=== PATIENT | male | born 1955 | race Caucasian/White ===

== ENCOUNTER → 2018-09-18 07:35 | Outpatient (CLI) | payer OTHER, SELFPAY ==
[2018-09-18 08:45] LABS: Specimen Label KIT TEST
[2018-09-18 09:11] LABS: Add Manual Diff / Slide Review NO; Basophils Absolute Auto 0 /uL (0-100); Basophils Percent Auto 0.8 % (0-2); Eosinophils Absolute Auto 100 /uL (0-450); Eosinophils Percent Auto 2.6 % (2-4); Hemoglobin 14.2 g/dL (13.5-17.5); Lymphocytes Absolute Auto 1300 /uL (1100-4500); Lymphocytes Percent Auto 24.9 % (25-40); Mean Corpuscular HGB Conc 33.1 % (30-36); Mean Corpuscular Hemoglobin 31.2 PG (26-34); Mean Corpuscular Volume 94.2 fL (80-100); Monocytes Absolute Auto 600 /uL (0-900); Monocytes Percent Auto 10.7 % (3-14); Neutrophils Absolute Auto 3100 /uL (1500-7000); Platelet Count 252 X10^3/uL (150-400); Red Blood Cell Count 4.56 X10^6/uL (4.5-5.9); Red Cell Distribution Width 13.2 % (11.6-14.8); White Blood Cell Count 5.2 X10^3/uL (4.5-11.0)
[2018-09-18 09:42] LABS: Alanine Aminotransferase 31 IU/L (21-72); Albumin 4.5 g/dL (3.5-5.0); Albumin Globulin Ratio 1.5 (1.0-2.8); Alkaline Phosphatase 60 U/L (38-126); Aspartate Aminotransferase 32 IU/L (17-59); BUN Creatinine Ratio 16.3 (6-22); Bilirubin Total 0.5 mg/dL (0.2-1.3); Blood Urea Nitrogen 13 mg/dL (9-20); Calcium 8.9 mg/dL (8.4-10.2); Carbon Dioxide 30 mmol/L (22-32); Chloride 102 mmol/L (98-107); Estimated Glomerular Filt Rate > 60.0 mL/min (>60); Glucose 102 mg/dL (80-110); HEMOLYSIS < 15 (0-50); Potassium 4.4 mmol/L (3.4-5.1); Sodium 140 mmol/L (137-145); Total Protein 7.5 g/dL (6.3-8.2)
[2018-09-18 10:25] LABS: HEMOLYSIS < 15 (0-50); Iron 115 ug/dL (49-181)
[2018-09-18 10:36] LABS: Percent Iron Saturation 31 % (20-50); Total Iron Binding Capacity 372 ug/dL (261-462); Transferrin 311 mg/dL (206-381)
== END ==
PROVIDERS: Family Provider Naturopath; Visit Provider Naturopath
DX: R53.83 Other fatigue (principal); R10.84 Generalized abdominal pain; K25.9 Gastric ulcer, unspecified as acute or chronic, without hemorrhage or perforation
CPT/HCPCS: 36415; 80053; 83540; 83550; 85025; 99001